=== PATIENT | male | born 1985 | race Caucasian/White ===

== ENCOUNTER 2016-08-16 13:03 | Outpatient (CLI) | payer OTHER ==
[2016-08-16] MEDS ORDERED: BUFFERED LIDOCAINE 10 ML SYRINGE IU ONE (14:02)
[2016-08-16] MEDS ORDERED: GADOPENTETATE DIMEGLUMINE 5 ML VIAL IVP ONE (14:02)
[2016-08-16] MEDS ORDERED: IOTHALAMATE MEGLUMINE 50 ML VIAL IVP ONE ×2 (14:02→14:09)
[2016-08-16] MEDS ORDERED: LIDOCAINE 1% 50 ML MDV SUBQ ONE (14:02)
== END 2016-08-16 13:04 | disposition home or self-care (01) ==
DX: M25.861 Other specified joint disorders, right knee (principal); M25.561 Pain in right knee
CPT/HCPCS: 20610; 73722; 77002; Q9961

== ENCOUNTER 2016-10-09 07:04 | Day surgery (SDC) | payer OTHER ==
[2016-10-09] MEDS ORDERED: LACTATED RINGERS 1,000 ML IV ONE (07:30)
[2016-10-09] MEDS ORDERED: BENZOCAINE/TETRACAINE/BUTAMBEN SPRAY 56 GM TOP ONE (08:50)
[2016-10-09] MEDS ORDERED: LIDO GARGLE 30 ML BOTTLE TOP ONE (08:50)
[2016-10-09 10:07] VITALS: BP 110/66
== END 2016-10-09 07:05 | disposition home or self-care (01) ==
LOC: SDS 07:04
PROVIDERS: ATTEND Surgery
PROC: 0DB58ZX Excision of Esophagus, Via Natural or Artificial Opening Endoscopic, Diagnostic (ICD-10-PCS; 2016-10-09)
PROC: 0DJD8ZZ Inspection of Lower Intestinal Tract, Via Natural or Artificial Opening Endoscopic (ICD-10-PCS; principal; 2016-10-09 08:15)
PROC: 0DB68ZX Excision of Stomach, Via Natural or Artificial Opening Endoscopic, Diagnostic (ICD-10-PCS; 2016-10-09 08:15)
DX: R10.32 Left lower quadrant pain (principal); K64.8 Other hemorrhoids; K92.1 Melena; K20.9 Esophagitis, unspecified; K29.70 Gastritis, unspecified, without bleeding; R12 Heartburn; K21.9 Gastro-esophageal reflux disease without esophagitis; I10 Essential (primary) hypertension
CPT/HCPCS: 43239; 45378; 87081; A9270; J7120; 88305